=== PATIENT | female | born 1980 | race Two or more races ===

== ENCOUNTER 2020-09-07 19:32 | Emergency (ER) | payer MEDICAID, OTHER ==
[~2020-09-07] VITALS: Ht 160 cm; Wt 99.8 kg
[2020-09-07] MEDS ORDERED: cloNIDine HCL 0.1 MG TAB PO ONE ×3 (19:45→23:45)
[2020-09-07 20:01] LABS: Basophils # (auto) 0.1 10 ^3/uL (0-0.2); Basophils % (auto) 0.7 % (0.0-2.0); Eosinophils # (auto) 0.1 10 ^3/uL (0-0.8); Hemoglobin 9.3 g/dL (12.2-16.2); Mean Corpuscular Hemoglobin 20.9 pg (28.0-32.0); Neutrophils # (auto) 2.9 10 ^3/uL (1.6-8.6); White Blood Cell 7.4 10^3/uL (4.4-10.8)
[2020-09-07 20:03] LABS: Eosinophils % (auto) 1.9 % (0.0-7.0); Hematocrit 29.3 % (36.0-46.0); Lymphocytes # (auto) 3.9 10 ^3/uL (0.4-5.4); Lymphocytes % (auto) 53.4 % (10.0-50.0); Mean Corpuscular Hgb Conc. 31.6 g/dL (32.0-36.0); Mean Corpuscular Volume 65.9 fL (80.0-100.0); Monocytes # (auto) 0.3 10 ^3/uL (0-1.3); Monocytes % (auto) 4.5 % (0.0-12.0); Neutrophils % (auto) 39.5 % (37.0-80.0); Red Blood Cells 4.45 10^6/uL (4.0-5.20); Red Cell Distribution Width 19.3 % (11.8-14.3)
[2020-09-07 20:21] LABS: Alanine Aminotransferase 21 U/L (13-56); Albumin 3.9 g/dL (3.4-5.0); Anion Gap 3 (5-15); Blood Urea Nitrogen 12 mg/dL (7-18); Calcium 9.1 mg/dL (8.5-10.1); Carbon Dioxide 29 mmol/L (21-32); Chloride 107 mmol/L (98-107); Glucose 114 mg/dL (74-106); Magnesium 2.1 mg/dL (1.6-2.6); Potassium 3.9 mmol/L (3.5-5.1); Sodium 139 mmol/L (136-145)
[2020-09-07 20:26] LABS: Alkaline Phosphatase 64 U/L (45-117); Aspartate Aminotransferase 16 U/L (15-37); BUN/Creatinine Ratio 15.2; Bilirubin, Total 0.6 mg/dL (0.2-1.0); GFR African American 103 mL/min; GFR Non-African American 85 mL/min; Total Protein 8.5 g/dL (6.4-8.2)
[2020-09-07] MEDS ORDERED: IOHEXOL 350 MG/ML 100ML IJ ONE (21:16)
[2020-09-07] MEDS ORDERED: SODIUM CHLORIDE 0.9% 500 ML IV ONE (23:00)
[2020-09-07 23:44] VITALS: BP 105/57
[2020-09-07] MEDS ORDERED: ACETAMINOPHEN 325 MG TAB PO ONE (23:45)
== END 2020-09-08 00:30 | disposition home or self-care (01) ==
LOC: ER 19:32
DX: I16.1 Hypertensive emergency (principal); Z91.041 Radiographic dye allergy status
CPT/HCPCS: 36415; 70450; 71045; 71275; 80053; 83735; 83880; 84484; 85025; 85379; 96360; 99285; Q9967

== ENCOUNTER 2025-04-18 23:53 | Emergency (ER) | payer MEDICAID ==
[~2025-04-18] VITALS: Ht 160 cm; Wt 105.9 kg
--- NOTE | 2025-04-19 00:38 | ED.PDOC ---
History of Present Illness HPI Comments 44-year-old female who came to ER for nausea. Patient denies any medical problems. States for the past 3 weeks, she has episodes of lower back pains, diaphoresis and nausea. Denies any vomiting, headaches, chest pains or fever. Upon arrival blood pressure was 236/123 mm Hg Chief Complaint: Nausea Time Seen by MD: 00:38 Reviewed Notes: Nurses Notes Allergies: Coded Allergies: NO KNOWN ALLERGIES (Unverified , 09/07/20) Home Meds Active Scripts Ondansetron HCl (Ondansetron Hydrochloride) 8 Mg Tab, 8 MG PO Q6HP PRN, #30 TAB Prov:ROBERT WEBBER MD 04/19/25 Amlodipine Besylate (Amlodipine Besylate) 5 Mg Tab, 1 TAB PO DAILY for 90 Days, #90 TAB 5 Refills Prov:ROBERT WEBBER MD 04/19/25 Information Source: Patient Mode of Arrival: Ambulatory Severity: Moderate Timing: Weeks Duration: Intermittent Past Medical History PAST MEDICAL HISTORY: Denies Surgical History: Denies all surgeries DIRECTOR OF REAL ESTATE History: Denies all DIRECTOR OF REAL ESTATE Hx Family History Family History: Reviewed,noncontributory to illness Social History Smoker: Non-Smoker Alcohol: Denies ETOH Use Drugs: Denies Drug Use Lives In: Home Constitutional: reports: diaphoresis; denies: chills, fatigue, fever, malaise, sweats, weakness, others EENTM: denies: blurred vision, double vision, ear bleeding, ear discharge, ear drainage, ear pain, ear ringing, eye pain, eye redness, hearing loss, mouth pain, mouth swelling, nasal discharge, nose bleeding, nose congestion, nose pain, photophobia, tearing, throat pain, throat swelling, voice changes, others Respiratory: denies: cough, hemoptysis, orthopnea, SOB at rest, shortness of breath, SOB with excertion, stridor, wheezing, others Cardiovascular: denies: chest pain, dizzy spells, diaphoresis, Dyspnea on exertion, edema, irregular heart beat, left arm pain, lightheadedness, palp itations, PND, syncope, others Gastrointestinal: reports: nausea; denies: abdomen distended, abdominal pain, blood streaked bowels, constipated, diarrhea, dysphagia, difficulty swallowing, hematemesis, melena, poor appetite, poor fluid intake, rectal bleeding, rectal pain, vomiting, others Genitourinary: denies: abnormal vagina bleeding, burning, dyspareunia, dysuria, flank pain, frequency, hematuria, incontinence, pain, , vagina disch arge, urgency, others Neurological: denies: dizziness, fainting, headache, left sided numbness, left sided weakness, numbness, paresthesia, pre-existing deficit, right sided numbness, right sided weakness, seizure, speech problems, tingling, tremors, weakness, others Musculoskeletal: reports: back pain; denies: gout, joint pain, joint swelling, muscle pain, muscle stiffness, neck pain, others Integumetry: denies: bruises, change in color, change in hair/nails, dryness, laceration, lesions, lumps, rash, wounds, others Allergic/Immunocompromised: denies: Difficulty Healing, Frequent Infections, Hives, Itching, others Hematologic/Lymphatic: denies: anemia, blood clots, easy bleeding, easy bruising, swollen glands, others Endocrine: denies: excessive hunger, excessive sweating, excessive thirst, excessive urination, flushing, intolerance to cold, intolerance to heat, unexplained weight gain, unexplained weight loss, others Psychiatric: denies: anxiety, bipolar disorder, depression, hopeless, panic disorder, schizophrenia, sleepless, suicidal, others Physical Exam General Appearance: No Apparent Distress, Normal HEENT: Normal ENT Inspection, Pharynx Normal, TMs Normal Neck: Full Range of Motion, Non-Tender, Normal, Normal Inspection Respiratory: Chest Non-Tender, Lungs Clear, No Accessory Muscle Use, No Respiratory Distress, Normal Breath Sounds Cardiovascular: No Edema, No JVD, No Murmur, No Gallop, Normal Peripheral Pulses, Regular Rate/Rhythm Breast Exam: Deferred Gastrointestinal: No Organomegaly, Non Tender, No Pulsatile Mass, Normal Bowel Sounds, Soft Genitalia: Deferred Pelvic: Deferred Rectal: Deferred Extremities: No calf tenderness, Normal capillary refill, Normal inspection, Normal range of motion, Non-tender, No pedal edema Musculoskeletal : Apperance: Normal Neurologic: Alert, water mechanic II-XII nml as Tested, No Motor Deficits, Normal Affect, Normal Mood, No Sensory Deficits Cerebellar Function: Normal Reflexes: Normal Skin: Dry, Normal Color, Warm Lymphatic: No Adenopathy Was a procedure done? Was a procedure done?: No Differential Dx Considerations may include: Anemia, electrolyte imbalance, urinary tract infection, hypertensive urgency X-Ray, Labs, Meds, VS Vital Signs Date Time Temp Pulse Resp B/P (MAP) Pulse Ox O2 Delivery O2 Flow Rate FiO2 04/19/25 02:57 187/123 04/19/25 02:44 73 18 187/123 (144) 98 04/19/25 01:49 199/130 04/19/25 01:45 98.1 87 18 199/130 (153) 97 98.1 04/19/25 01:42 66 04/18/25 23:58 98.5 85 21 236/123 98 98.5 Lab Test 04/19/25 00:48 Range/Units White Blood Count 7.2 4.4-10.8 10^3/uL Red Blood Count 4.76 4.0-5.20 10^6/uL Hemoglobin 11.5 L 12.2-16.2 g/dL Hematocrit 35.1 L 36.0-46.0 % Mean Corpuscular Volume 73.6 L 80.0-100.0 fL Mean Corpuscular Hemoglobin 24.0 L 28.0-32.0 pg Mean Corpuscular Hemoglobin Concent 32.7 32.0-36.0 g/dL Red Cell Distribution Width 19.6 H 11.8-14.3 % Platelet Count 270 140-450 10^3/uL Mean Platelet Volume 8.7 6.9-10.8 fL Neutrophils (%) (Auto) 55.1 37.0-80.0 % Lymphocytes (%) (Auto) 36.3 10.0-50.0 % Monocytes (%) (Auto) 6.1 0.0-12.0 % Eosinophils (%) (Auto) 1.2 0.0-7.0 % Basophils (%) (Auto) 1.3 0.0-2.0 % Neutrophils # (Auto) 4.0 1.6-8.6 10 ^3/uL Lymphocytes # (Auto) 2.6 0.4-5.4 10 ^3/uL Monocytes # (Auto) 0.4 0-1.3 10 ^3/uL Eosinophils # (Auto) 0.1 0-0.8 10 ^3/uL Basophils # (Auto) 0.1 0-0.2 10 ^3/uL Nucleated Red Blood Cells 0.0 % Sodium Level 143 136-145 mmol/L Potassium Level 3.2 L 3.5-5.1 mmol/L Chloride Level 105 98-107 mmol/L Carbon Dioxide Level 27 20-31 mmol/L Anion Gap 11 5-15 Blood Urea Nitrogen 11 9-23 mg/dL Creatinine 0.67 0.550-1.02 mg/dL Glomerular Filtration Rate Calc 109 >90 mL/min BUN/Creatinine Ratio 16.4 10.0-20.0 Serum Glucose 96 74-106 mg/dL Calcium Level 9.3 8.7-10.4 mg/dL Total Bilirubin 0.7 0.2-1.0 mg/dL Aspartate Amino Transferase (AST) 35 13-40 U/L Alanine Aminotransferase (ALT) 36 7-40 U/L Alkaline Phosphatase 64 46-116 U/L Total Protein 7.6 5.7-8.2 g/dL Albumin 4.8 3.2-4.8 g/dL Current Medications Medications (Trade) Dose Ordered Sig/Sarah Route Start Time Stop Time Status Last Admin Ondansetron HCl (Zofran Po) 8 mg ONCE ONCE PO 04/19/25 00:45 04/19/25 00:46 DC 04/19/25 01:49 Lisinopril (Zestril Tablet) 20 mg ONCE ONCE PO 04/19/25 00:45 04/19/25 00:46 DC 04/19/25 01:49 Clonidine HCl (Catapres Tablet) 0.2 mg ONCE ONCE PO 04/19/25 02:45 04/19/25 02:46 DC 04/19/25 02:57 Potassium Chloride (Klor-Con Tablet) 20 meq ONCE ONCE PO 04/19/25 02:45 04/19/25 02:46 DC 04/19/25 02:56 Time of 1ST Reevaluation: 00:36 Reevaluation 1ST: Unchanged Patient Education/Counseling: Diagnosis, Treatment Family Education/Counseling: No Family Present SEPSIS Sepsis Screen Date sepsis recognized/suspect: Apr 19, 2025 Time Sepsis recognized/suspect: 0002 Recent Procedure: No On Antibiotic Therapy: No Respiratory Rate >20: Yes Heart Rate >90: No Temp<36 C (96.8 F) or >38.3 C: No SBP <90 or MAP <65 mmHG: No New Acute Mental Status Change: No Is the patient on CPAP, BIPAP,: No Physician Orders Urinalysis (04/19/25 00:30) Electrocardigram (04/19/25 00:30) Vital Signs Date Time Temp Pulse Resp B/P (MAP) Pulse Ox O2 Delivery O2 Flow Rate FiO2 04/19/25 02:57 187/123 04/19/25 02:44 73 18 187/123 (144) 98 04/19/25 01:49 199/130 04/19/25 01:45 98.1 87 18 199/130 (153) 97 98.1 04/19/25 01:42 66 04/18/25 23:58 98.5 85 21 236/123 98 98.5 Laboratory Tests Test 04/19/25 00:48 White Blood Count 7.2 10^3/uL (4.4-10.8) Medications Medications Dose Ordered Sig/Sarah Route Start Time Stop Time Status Last Admin Dose Admin Clonidine HCl 0.2 mg ONCE ONCE PO 04/19/25 02:45 04/19/25 02:46 DC 04/19/25 02:57 Lisinopril 20 mg ONCE ONCE PO 04/19/25 00:45 04/19/25 00:46 DC 04/19/25 01:49 Ondansetron HCl 8 mg ONCE ONCE PO 04/19/25 00:45 04/19/25 00:46 DC 04/19/25 01:49 Potassium Chloride 20 meq ONCE ONCE PO 04/19/25 02:45 04/19/25 02:46 DC 04/19/25 02:56 Departure 1 Departure Time of Disposition: 02:00 Impression: Primary Impression: Hypertensive urgency Additional Impression: Nausea and vomiting Disposition: 01 HOME / SELF CARE / HOMELESS Condition: Stable e-Prescriptions Ondansetron HCl (Ondansetron Hydrochloride) 8 Mg Tab 8 MG PO Q6HP PRN, #30 TAB Prov: ROBERT WEBBER MD 04/19/25 Amlodipine Besylate (Amlodipine Besylate) 5 Mg Tab 1 TAB PO DAILY for 90 Days, #90 TAB 5 Refills Prov: ROBERT WEBBER MD 04/19/25 Discharged With: Self Critical Care Note Critical Care Time?: No Stability Stability form required: No Heart Score Heart Score: Heart Score Response (Comments) Value History N/A 0 EKG N/A 0 Age N/A 0 Risk Factors N/A 0 Troponin N/A 0 Total 0 I personally scribed for ROBERT WEBBER MD ([email or web address]) on 04/19/25 at 00:38. Electronically submitted by Darian Nixon ([facility]). ROBERT WEBBER MD Apr 19, 2025 00:38
[2025-04-19 01:08] LABS: Hematocrit 35.1 % (36.0-46.0); Mean Corpuscular Hemoglobin 24.0 pg (28.0-32.0); Nucleated Red Blood Cells % 0.0 %
[2025-04-19 01:10] LABS: Hemoglobin 11.5 g/dL (12.2-16.2); Mean Corpuscular Volume 73.6 fL (80.0-100.0)
[2025-04-19 01:27] LABS: Alanine Aminotransferase 36 U/L (7-40); Albumin 4.8 g/dL (3.2-4.8); Alkaline Phosphatase 64 U/L (46-116); Anion Gap 11 (5-15); BUN/Creatinine Ratio 16.4 (10.0-20.0); Bilirubin, Total 0.7 mg/dL (0.2-1.0); Blood Urea Nitrogen 11 mg/dL (9-23); Calcium 9.3 mg/dL (8.7-10.4); Carbon Dioxide 27 mmol/L (20-31); Chloride 105 mmol/L (98-107); Glucose 96 mg/dL (74-106); Sodium 143 mmol/L (136-145); Total Protein 7.6 g/dL (5.7-8.2)
[2025-04-19 01:30] LABS: Potassium 3.2 mmol/L (3.5-5.1)
[2025-04-19 01:45] VITALS: TEMP 98.1
[2025-04-19] MEDS: ONDANSETRON ODT 4 MG TAB PO ONE (01:49)
[2025-04-19] MEDS: LISINOPRIL 20 MG TAB PO ONE (01:49)
[2025-04-19] MEDS ORDERED: AMLO1TAB22 PO (02:44)
[2025-04-19] MEDS ORDERED: ONDA-180 PO (02:44)
[2025-04-19] MEDS: POTASSIUM CHL 20 Meq TABLET PO ONE (02:56)
[2025-04-19 04:00] VITALS: BP 148/101; PULSE 67; RESP 14; O2SAT 98
--- NOTE | 2025-04-19 05:16 | ECG ---
[facility] Test Date: 2025-04-19 Test Time: 01:42:53 Pat Name: SEBASTIAN FORD Department: ED Room: Gender: F Composite Technician: IC : 1980 Requested By: ROBERT WEBBER Order Number: [id number] Reading MD: Isaak Huang Measurements Intervals [place] Rate: 66 P: 10 UT: 164 QRS: 1 QRSD: 106 T: 39 QT: 413 QTc: 433 Interpretive Statements Sinus rhythm RSR' in V1 or V2, right VCD or RVH Electronically Signed On 04-20-2025 22:59:21 PDT by Isaak Huang Please click the below link to view image of tracing.
== END 2025-04-19 04:04 | disposition home or self-care (01) ==
LOC: ER 23:53
DX: I16.0 Hypertensive urgency (principal); R11.2 Nausea with vomiting, unspecified; Z79.899 Other long term (current) drug therapy
CPT/HCPCS: 36415; 80053; 85025; 93005; 99284; Q0162